=== PATIENT | female | born 1985 | race Caucasian/White ===

== ENCOUNTER 2023-08-06 09:10 | Outpatient (AMB) | payer MEDICARE, MEDICAID, SELFPAY ==
--- NOTE | 2023-08-06 09:13 | MHC.OFFWIV ---
Intake Vital Signs 08/06/23 09:14 Height 4 ft 8 in Weight 148 lb BMI 33.2 BP 120/68 Blood Pressure Location Lt brachial Position Sitting Pulse 73 Pulse Source Pulse Oximeter Temp 99.1 F Temp Source Oral Pulse Oximetry (%) 98 Oxygen Delivery Method Room Air Intake Visit Reasons: EP, sinus, ear pain Intake Note: Patient is here today with cough and ear congestion for a week. Allergies No Known Allergies Allergy (Unverified 08/06/23 09:20) Medication List - Last Reconciled 08/06/23 by Sandhya Herbert CNP levothyroxine 100 mcg PO DAILY Do you need a note to return to daycare/school/sports/work: Yes HPI HPI Comments History of Present Illness Details 37-year-old female presents today to the walk-in clinic for complaint of cough, bilateral ear pain and pressure x 1 week. She reports fever, chills, fatigue, non productive cough, bilateral ear pain, pressure, and difficulty hearing. She denies CP, SOB, wheezing, neck pain,dizziness, abdominal pain, nausea, vomiting, changes in bowels or bladder. Home covid test negative. 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 Review of Systems Const All systems reviewed & are unremarkable except as noted in HPI and below Physical Exam Vital Signs: Last Vital Signs Temp 99.1 F 08/06/23 09:14 Pulse 73 08/06/23 09:14 BP 120/68 08/06/23 09:14 Pulse Ox 98 08/06/23 09:14 Oxygen Delivery Method Room Air 08/06/23 09:14 BMI result Body Mass Index 33.2 Const General: alert, ill appearing and well groomed Nutritional Appearance: average body habitus Orientation/consciousness: patient oriented x3 Limitations: no limitations HEENT Head: Yes normal to inspection, Yes normocephalic and Yes atraumatic Ears: TM normal on the right (erythema, bulging TM, no fluid ), TM normal on the left (left ear opaque fluid filled middle ear and bulging tympanic membrane) and hearing grossly impaired bilaterally General nose exam: Normal nasal mucous membranes and turbinates present and No nasal discharge present Face and sinus: Yes sinuses nontender Mouth: moist mucous membranes Throat: Yes posterior oropharynx normal, Yes tonsils normal and Yes uvula midline Eyes General: appearance normal, both eyes and all related structures Eyelids: Yes eyelids normal Conjunctivae: conjunctivae normal Sclerae: sclerae normal Neck Neck: Yes normal visual inspection, Yes full ROM, Yes no meningeal signs, Yes lymphadenopathy and Yes submandibular swelling Chest Chest palpation & inspection: normal inspection of the chest Resp Effort & Inspection: normal respiratory effort, no audible wheezes, Actively coughing (barking dry cough), no respiratory distress and not tachypneic Auscultation: clear to auscultation bilaterally, no crackles, no rhonchi and no wheezes Cardio Palpation: normal PMI Rate: regular rate Rhythm: regular rhythm Heart sounds: S1 normal heart sound present, S2 normal heart sound present and no murmurs Peripheral pulses: Peripheral pulses 2+ throughout GI Palpation (GI): Soft to palpation and nontender Auscultation: normal bowel sounds Skin General skin exam: no rashes or lesions noted, elasticity normal and turgor normal Neuro General: patient oriented x3, gait normal, moves all extremities and no meningeal signs Extrem General: Yes normal to inspection, Yes full ROM, Yes capillary refill normal and Yes no clubbing, cyanosis or edema Psych Appearance: well kempt Mental Status: mental status grossly normal Speech and movement: Normal speech and movement present Affect: normal affect Attitude: cooperative Assessment & Plan Assessment & Plan (1) Acute otitis media with effusion of both ears: Code(s): H65.193 - Other acute nonsuppurative otitis media, bilateral Plan: 37-year-old female seen today in walk-in clinic for complaint of cough, bilateral ear pain and pressure x 1 week. Physical exam reveals left ear opaque fluid filled middle ear and bulging tympanic membrane, right ear erythema, bulging TM, no fluid Will treat with Augmentin 1 tablet po bid x 7 days, encouraged to take with food or milk to reduce GI upset. Encouraged to follow up with PCP Encouraged to return to office for worsening or unresolved symptoms. (2) Cough: Code(s): R05.9 - Cough, unspecified Qualifiers: Cough type: acute Qualified Code(s): R05.1 - Acute cough Plan: Dry barking cough, will send RX for Benzonatate 100 mg po bid x 7 days. Encouraged to drink plenty of fluids and get plenty of rest. Medications: New amoxicillin-pot clavulanate 875-125 mg 1 tab PO BID 7 days 14 tabs 0RF H65.193 - Other acute nonsuppurative otitis media, bilateral benzonatate 100 mg PO BID 7 days PRN 14 caps 0RF cough R05.9 - Cough, unspecified Coding Level of Care Code Est Pt Level 3 (91660) Diagnoses Acute otitis media with effusion of both ears H65.193 Acute cough R05.1 Cough type: acute
[2023-08-06 09:14] VITALS: BP 120/68; PULSE 73; TEMP 37.3; O2SAT 98; BMI 33.2
== END 2023-08-06 10:31 | disposition home or self-care (01) ==
PROVIDERS: Visit Provider Nurse Practitioner Acute Care
DX: H65.193 Other acute nonsuppurative otitis media, bilateral (principal); R05.1 Acute cough
CPT/HCPCS: 99213